=== PATIENT | male | born 1955 | race Caucasian/White ===

== ENCOUNTER 2023-01-07 07:40 | Outpatient (CLI) | payer MEDICARE, OTHER | END 2023-01-07 07:41 | disposition home or self-care (01) | LOC: CSHCT 07:40 | PROVIDERS: ATTEND Urology | DX: C67.2 Malignant neoplasm of lateral wall of bladder (principal); N32.89 Other specified disorders of bladder | CPT/HCPCS: 74178; 82565 ==